=== PATIENT | male | born 1980 | race Caucasian/White ===

== ENCOUNTER → 2016-09-29 | Outpatient (CLI) | payer OTHER ==
[2015-02-24 16:17] VITALS: BP 139/57
--- NOTE | 2016-09-29 11:30 | RAD ---
Indication joint pain. AP and lateral views of the thoracic spine were obtained as well as a swimmer's view. Vertebral height alignment and disc spaces are unremarkable. Acute finding in the thoracic spine is not seen. Significant degenerative changes are not apparent on plain films. IMPRESSION: No acute or significant finding seen on plain films of the thoracic spine
--- NOTE | 2016-09-29 11:47 | RAD ---
Indication joint pain. Back pain. AP and lateral views of the lumbar spine were obtained as well as a coned view targeted to the lumbosacral junction. Vertebral height is relatively well maintained. There is a moderately large osteophyte off the anterior superior aspect of the L4 vertebral body extending towards the L3 vertebral body. There is slight disc space narrowing at L3-4 and minimal disc space narrowing at L2-3. Alignment is well maintained. Acute bony finding is not seen. IMPRESSION: Modest degenerative change predominantly centered at L3-4
--- NOTE | 2016-09-29 15:45 | RAD ---
Left elbow, 3 views, 09/29/2016: History: Joint pain No fracture or dislocation is identified. There is no radiographic evidence of a joint effusion. IMPRESSION: No acute left elbow abnormality is detected.
== END | disposition home or self-care (01) ==
LOC: DXRAD 10:39
PROVIDERS: ATTEND Nurse Practitioner
DX: M54.9 Dorsalgia, unspecified (principal); M25.60 Stiffness of unspecified joint, not elsewhere classified; M54.6 Pain in thoracic spine; M25.522 Pain in left elbow
CPT/HCPCS: 72072; 72100; 73080

== ENCOUNTER 2018-10-06 13:10 | Emergency (ER) | payer SELFPAY ==
[~2018-10-06] VITALS: Ht 188 cm; Wt 96.5 kg
--- NOTE | 2018-10-06 14:01 | PHYS DOC ---
Past History Past Medical History: No Pertinent History, Other Past Surgical History: No Surgical History, Pneumothorax Smoking: Quit Greater Than 1 Year Alcohol Use: None Drug Use: None Social History Narrative: history of meth and thc use Adult General Chief Complaint Chief Complaint: HAND PROBLEM HPI HPI Patient is a 1-year-old male who presents with right hand pain. 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 At the point where he holds a knife for the last 90 days, a blister developed. He occasionally gets drainage from this area. Over the past several days he's had decreased range of motion in his hand. Significant increased pain with movement of his fingers, especially his ring finger. No numbness or tingling. He is right hand dominant. He is a former smoker, stopping approximately 6 years ago when after switching to vaping he developed a pneumothorax and required a hospital stay. Last tetanus vaccine was approximately 6 years ago[] Review of Systems Review of Systems Constitutional: Denies fever or chills [] Eyes: Denies change in visual acuity, redness, or eye pain [] HENT: Denies nasal congestion or sore throat [] Respiratory: Denies cough or shortness of breath [] Cardiovascular: No chest pain or palpitations[] GI: Denies abdominal pain, nausea, vomiting, bloody stools or diarrhea [] : Denies dysuria or hematuria [] Musculoskeletal: Denies back pain, see history of present illness[] Integument: See history of present illness[] Neurologic: Denies headache, focal weakness or sensory changes [] Endocrine: Denies polyuria or polydipsia [] All other systems were reviewed and found to be within normal limits, except as documented in this note. Current Medications Current Medications Current Medications Medications (Trade) Dose Ordered Sig/Yaya Start Time Stop Time Status Last Admin Dose Admin Clindamycin Phosphate 50 ml @ 100 mls/hr 1X ONCE 10/06/18 14:10 10/06/18 14:39 Allergies Allergies Allergies Coded Allergies Type Severity Reaction Last Updated Verified No Known Drug Allergies 10/06/18 No Physical Exam Physical Exam Constitutional: Well developed, well nourished, no acute distress, non-toxic appearance. [] HENT: Normocephalic, atraumatic, bilateral external ears normal, oropharynx moist, no oral exudates, nose normal. [] Eyes: PERRLA, EOMI, conjunctiva normal, no discharge. [] Neck: Normal range of motion, no tenderness, supple, no stridor. [] Cardiovascular:Heart rate regular rhythm, no murmur [] Lungs & Thorax: Bilateral breath sounds clear to auscultation [] Abdomen: Bowel sounds normal, soft, no tenderness, no masses, no pulsatile masses. [] Skin: Warm, dry, no erythema, no rash. [] Back: No tenderness, no CVA tenderness. [] Extremities: Right hand shows a blister approximately 1.5 cm at the radial aspect of the index finger metacarpal phalangeal joint. There is swelling to all of the fingers with them being held in flexion, there is pain with passive range of motion and decreased active range of motion of the index, long, ring, and small finger most predominantly in the index as well as the ring fingers. Patient is distal neurovascularly intact. The other 3 extremities show no tenderness, no cyanosis, no clubbing, ROM intact, no edema. [] Neurologic: Alert and oriented X 3, normal motor function, normal sensory function, no focal deficits noted. [] Psychologic: Affect normal, judgement normal, mood normal. [] Current Patient Data Vital Signs Vital Signs Date Time Temp Pulse Resp B/P (MAP) Pulse Ox O2 Delivery O2 Flow Rate FiO2 10/06/18 13:09 98.1 77 18 97 Room Air EKG EKG [] Radiology/Procedures Radiology/Procedures EXAM: Right hand, 3 views. HISTORY: Second metacarpal phalangeal joint infection. Pain. Limited range of motion. COMPARISON: None. FINDINGS: 3 views of the right hand are obtained. There is no fracture, dislocation or subluxation. There is soft tissue swelling surrounding the proximal second phalanx. There may be tiny focus of gas along the radial aspect of the base of the second phalanx. There is no convincing cortical defect, erosion or sclerosis. No foreign body is seen. IMPRESSION: 1. Soft tissue swelling and possible tiny focus of gas within the proximal index finger. Correlate with visual inspection. No underlying osseous lesion or foreign body is seen. 2. No acute osseous finding.[] Course & Med Decision Making Course & Med Decision Making Pertinent Labs and Imaging studies reviewed. (See chart for details) ED course: Patient arrived, was placed in bed, and tolerated exam well. Due to concern for hand infection versus flexor tenosynovitis of multiple fingers, IV antibiotics were started, he was transported to and from radiology with any complications. After the return of the lab and imaging findings, these were discussed with the patient and family who voiced understanding. Initial consultation was made with orthopedic surgery at [facility] who deferred due to the concern that this may be an infection in the hand and would potentially need a hand surgeon. Consultation was made with , and Dr. Jeffrey Mcnulty graciously accepted the patient in transfer. It was felt appropriate to transport the patient by POV. No additional antibiotics were thought to be necessary until evaluation by the orthopedic team at . Patient was discharged in improved condition[] Dragon Disclaimer Dragon Disclaimer This electronic medical record was generated, in whole or in part, using a voice recognition dictation system. Departure Departure: Impression: Primary Impression: Infection of right hand Disposition: 05 TRANSFER OTHER Condition: IMPROVED Referrals: YANG MCKENNA (PCP) Additional Instructions: Go to the ER at . You have been accepted by Dr. Mcnulty and the orthopedic team for evaluation in the emergency department. The address is [facility] [address] , [place] [address]. Return to the emergency department if worsening pain or any other concerns. SARA MOLINA DO Oct 06, 2018 14:01
[2018-10-06 14:03] LABS: BASO % 1 % (0-3); EOS # 0.1 x10^3/uL (0.0-0.7); EOS % 2 % (0-3); HEMATOCRIT 43.6 % (39.0-53.0); HEMOGLOBIN 14.8 g/dL (13.0-17.5); LYMPH # 1.7 x10^3/uL (1.0-4.8); LYMPH % 19 % (24-48); MEAN CORPUSCULAR HEMOGLOBIN 30 pg (25-35); MEAN CORPUSCULAR HGB CONC 34 g/dL (31-37); MEAN CORPUSCULAR VOLUME 88 fL (79-100); MONO # 0.7 x10^3/uL (0.0-1.1); MONO % 8 % (0-9); NEUT # 6.2 x10^3uL (1.8-7.7); NEUT % 71 % (31-73); PLATELET COUNT 291 x10^3/uL (140-400); RED BLOOD COUNT 4.98 x10^6/uL (4.30-5.70); RED CELL DISTRIBUTION WIDTH 13.5 % (11.5-14.5); WHITE BLOOD COUNT 8.7 x10^3/uL (4.0-11.0)
--- NOTE | 2018-10-06 14:05 | RAD ---
EXAM: Right hand, 3 views. HISTORY: Second metacarpal phalangeal joint infection. Pain. Limited range of motion. COMPARISON: None. FINDINGS: 3 views of the right hand are obtained. There is no fracture, dislocation or subluxation. There is soft tissue swelling surrounding the proximal second phalanx. There may be tiny focus of gas along the radial aspect of the base of the second phalanx. There is no convincing cortical defect, erosion or sclerosis. No foreign body is seen. IMPRESSION: 1. Soft tissue swelling and possible tiny focus of gas within the proximal index finger. Correlate with visual inspection. No underlying osseous lesion or foreign body is seen. 2. No acute osseous finding. Electronically signed by: Yany Franco MD (10/06/2018 2:02 PM) [place] [id number]
[2018-10-06] MEDS ORDERED: CLINDAMYCIN 600MG PREMIX 50 ML IV ONE (14:10)
[2018-10-06 14:11] LABS: C REACTIVE PROTEIN 9.5 mg/L (0-3.3); CALCIUM 9.3 mg/dL (8.5-10.1); CREATININE 1.2 mg/dL (0.7-1.3); GFR 67.1; POTASSIUM 4.1 mmol/L (3.5-5.1)
[2018-10-06] MEDS ORDERED: DIPHTH,PERTUSS(ACELL),TET TOX 0.5 ML DISP.SYRIN. VAX IM ONE (14:30)
[2018-10-06 15:08] LABS: SEDIMENTATION RATE 23 (0-15)
[2018-10-06 15:41] VITALS: BP 160/98
== END 2018-10-06 15:41 | disposition short-term general hospital (02) ==
LOC: ER 13:10
DX: L08.89 Other specified local infections of the skin and subcutaneous tissue (principal); M79.641 Pain in right hand; Z87.891 Personal history of nicotine dependence
CPT/HCPCS: 36415; 73130; 80048; 85025; 85651; 86140; 87040; 90471; 90715; 96365; 99285; J3490

== ENCOUNTER → 2020-09-20 | Outpatient (CLI) | payer OTHER ==
--- NOTE | 2020-09-20 13:54 | RAD ---
EXAM: Right forearm, 2 views; right hand, 3 views. HISTORY: Pain. COMPARISON: None. FINDINGS: 2 views of the right forearm and 3 views of the right hand are obtained. There is no fractu re, dislocation or subluxation. There is no lytic or sclerotic osseous lesion. There is no periosteal reaction. There is no foreign body. IMPRESSION: No acute osseous finding. Electronically signed by: Yany Franco MD (09/20/2020 1:52 PM) [id number]
== END ==
LOC: RAD 12:41
PROVIDERS: ATTEND Family Medicine
DX: M79.641 Pain in right hand (principal); M79.601 Pain in right arm
CPT/HCPCS: 73090; 73120